=== PATIENT | female | born 1985 | race Two or more races ===

== ENCOUNTER 2024-04-23 02:00 | Emergency (ER) | payer OTHER ==
[~2024-04-23] VITALS: Ht 152.4 cm; Wt 81.8 kg
[2024-04-23 04:49] VITALS: BP 149/79; PULSE 72; RESP 16; TEMP 98.6; O2SAT 100
[2024-04-23] MEDS ORDERED: FLUT16SP NASAL (04:49)
== END 2024-04-23 04:53 | disposition home or self-care (01) ==
LOC: EMS 02:00
DX: H65.92 Unspecified nonsuppurative otitis media, left ear (principal)
CPT/HCPCS: 99281; Z7502